=== PATIENT | male | born 1980 | race Caucasian/White ===

== ENCOUNTER 2019-09-29 01:37 | Emergency (ER) | payer MEDICAID ==
[~2019-09-29] VITALS: Ht 175.3 cm; Wt 84.8 kg
[2019-09-29 01:49] VITALS: Ht 175.3 cm; Wt 84.8 kg
[2019-09-29 03:03] VITALS: BP 122/87
== END 2019-09-29 03:03 | disposition home or self-care (01) ==
LOC: ED 01:37
DX: F41.9 Anxiety disorder, unspecified (principal); R51 Headache; F17.210 Nicotine dependence, cigarettes, uncomplicated; Z88.0 Allergy status to penicillin; Z88.5 Allergy status to narcotic agent; Z59.0 Homelessness
CPT/HCPCS: Q0092

== ENCOUNTER 2020-05-25 16:30 | Emergency (ER) | payer MEDICAID ==
[~2020-05-25] VITALS: Ht 175.3 cm; Wt 71.2 kg
[2020-05-25 17:41] VITALS: Ht 175.3 cm; Wt 71.2 kg
[2020-05-25 18:32] VITALS: BP 126/74
== END 2020-05-25 18:32 | disposition home or self-care (01) ==
LOC: ED 16:30
DX: S91.331A Puncture wound without foreign body, right foot, initial encounter (principal); Z88.0 Allergy status to penicillin; Z88.5 Allergy status to narcotic agent; W22.8XXA Striking against or struck by other objects, initial encounter; Y93.89 Activity, other specified; Y92.89 Other specified places as the place of occurrence of the external cause; Y99.8 Other external cause status
CPT/HCPCS: 90715